=== PATIENT | male | born 1930 | race Caucasian/White ===

== ENCOUNTER 2017-03-06 14:34 | Inpatient (IN) | payer OTHER, MEDICARE ==
[2017-03-06] MEDS ORDERED: METOPROLOL TARTRATE PF/INJ 5 MG/5 ML SDV IV ONE (15:21)
[2017-03-06] MEDS ORDERED: NORMAL SALINE 1000 ML 1,000 ML IV ONE ×3 (15:21→19:31)
--- NOTE | 2017-03-06 15:26 | ER Document Report ---
ED General - General Chief Complaint: Nausea/Vomiting Stated Complaint: NAUSEA Time Seen by Provider: 03/06/17 15:11 Notes: 86-year-old male with history of atrial fibrillation, prior cardiac bypass and diabetes presents with multiple issues for the last 5 days. Recently out of rehab after stay with pneumonia. He has not been taking his medications for about 5 days and in the last 2 days has been complaining of chest pain, pain behind his umbilicus, palpitations and has had nausea and vomiting as well. He is not taking p.o. appetite. has to give some history as he has some dementia and appears confused. She states she feels like he is "giving up". He denies any specific symptoms and gives quite a different history. He denies any pain right now is asking for a Pepsi so that he does not . TRAVEL OUTSIDE OF THE [place] IN LAST 30 DAYS: No - Related Data Allergies/Adverse Reactions: Penicillins Allergy (Unknown, Verified 07/11/14 04:15) Past Medical History - Social History Smoking Status: Former Smoker Family History: Reviewed & Not Pertinent - Past Medical History Cardiac Medical History: Reports: Hx Hypertension Pulmonary Medical History: Reports: Hx COPD Endocrine Medical History: Reports: Hx Diabetes Mellitus Type 2 Past Surgical History: Reports: Hx Cardiac Surgery - CABG, stents - Immunizations Hx Diphtheria, Pertussis, Tetanus Vaccination: Yes Review of Systems - Review of Systems -: Yes ROS unobtainable due to patient's medical condition - Review of systems obtained through patient's family, otherwise negative Physical Exam - Vital signs Vitals: Resp 22 H 03/06/17 15:19 Interpretation: Tachycardic - Notes Notes: Physical Exam: GENERAL: VS as per nursing doc. chronically ill-appearing, well-nourished and in no acute distress. HEAD: Atraumatic, normocephalic. EYES: Pupils equal round and reactive to light, extraocular movements intact, sclera anicteric, no conjunctival injection or discharge. ENT: Nares patent, oropharynx clear without exudates. Dry mucous membranes. NECK: Supple without lymphadenopathy. LUNGS: Breath sounds diminished bilaterally, more so on the left. HEART: Normal S1S2. Irregularly irregular and tachycardic. Faint systolic murmur noted. ABDOMEN: Soft, non-tender EXTREMITIES: Normal range of motion. No calf tenderness. Negative Homans. 2-3 + pitting edema. NEUROLOGICAL: Cranial nerves grossly intact. Normal speech. Normal sensory and motor exams. No gross cerebellar abnormalities. PSYCH: Normal mood, normal affect. SKIN: Warm, dry, no cyanosis, no splinter hemorrhages. Cap refill < 2 sec. Course - Re-evaluation Re-evalutation: 03/06/17 16:29 Patient reevaluated and discussed with family the elevated lactic acid. Recommended Graf but the patient was adamant against this. He is disoriented somewhat but seems to understand the overall picture. We will treat him as sepsis at this point. Further fluid boluses have been ordered as well as antibiotics. 03/06/17 20:52 I spoke at length with his Wanda [phone] as well as I had the patient earlier. She confirms his living well request of patient being DNR, DO NOT INTUBATE and no CPR but they would like treatment otherwise. 03/06/17 21:16 D/W with Dr. Iglesias. 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 After the ultrasound I will discuss with the whether they would prefer comfort care or transfer. 03/06/17 22:33 I discussed further with Dr. Iglesias. And he will admit the patient for comfort care measures. Patient has become increasingly more confused starting to get somewhat hypotensive. I discussed with the at length and they would like comfort measures only and verified his DNR status. We will maintain her current infusions as they are. No other heroic measures will be performed, pressors or other zepeda. understands the grave prognosis for her . - Vital Signs Vital signs: Temp Pulse Resp BP Pulse Ox 21 H 93/74 L 92 03/06/17 22:06 03/06/17 22:06 03/06/17 22:06 - Laboratory Result Diagrams: 03/06/17 17:35 03/06/17 15:25 Laboratory results interpreted by me: 03/06/17 03/06/17 03/06/17 15:25 15:25 15:25 WBC Hgb RDW Plt Count Lymphocytes % Absolute Neutrophils Absolute Lymphocytes PT 23.8 H VBG pH VBG pCO2 VBG HCO3 Sodium 145.4 H Potassium 5.2 H Carbon Dioxide 13 L Anion Gap 26 H BUN 31 H Creatinine 1.99 H Est GFR ( Amer) 39 L Est GFR (Non-Af Amer) 32 L Glucose 134 H Lactic Acid 10.7 H Total Bilirubin 3.7 H Direct Bilirubin 1.9 H AST 1602 H ALT 1380 H Creatine Kinase 42 L Urine Protein Urine Glucose (UA) Urine Ketones Urine Blood Urine Urobilinogen Urine Ascorbic Acid 03/06/17 03/06/17 03/06/17 17:35 18:13 19:50 WBC 21.0 H Hgb 13.4 L RDW 16.2 H Plt Count 66 L Lymphocytes % 48.8 H Absolute Neutrophils 9.3 H Absolute Lymphocytes 10.3 H PT VBG pH VBG pCO2 VBG HCO3 Sodium Potassium Carbon Dioxide Anion Gap BUN Creatinine Est GFR ( Amer) Est GFR (Non-Af Amer) Glucose Lactic Acid 11.7 H Total Bilirubin Direct Bilirubin AST ALT Creatine Kinase Urine Protein >=500 H Urine Glucose (UA) 50 H Urine Ketones TRACE H Urine Blood LARGE H Urine Urobilinogen 4.0 H Urine Ascorbic Acid 40 H 03/06/17 03/06/17 19:50 19:50 WBC Hgb RDW Plt Count Lymphocytes % Absolute Neutrophils Absolute Lymphocytes PT VBG pH 7.24 L VBG pCO2 29.4 L VBG HCO3 12.2 L Sodium Potassium Carbon Dioxide Anion Gap BUN Creatinine Est GFR ( Amer) Est GFR (Non-Af Amer) Glucose Lactic Acid Total Bilirubin Direct Bilirubin AST ALT Creatine Kinase 40 L Urine Protein Urine Glucose (UA) Urine Ketones Urine Blood Urine Urobilinogen Urine Ascorbic Acid - Diagnostic Test Radiology reviewed: Image reviewed, Reports reviewed - Appears to me the patient has basilar atelectasis versus probable more likely infiltrate with his history of recent pneumonia. Radiology results interpreted by me: 03/06/17 20:43 CT scan showed some unusual calcifications at some area of infrarenal aneurysmal , small dissection cannot be excluded. Also a 6 mm calcification near the UPJ on the right without hydronephrosis. Patient is about to finish his third liter of fluids. Lactic acid had increased slightly. I do not have a prior creatinine to compare to. Repeat troponin is pending. Urine had significant hematuria but CPK was normal so less likely rhabdomyolysis. Heart rate has decreased to the 110-120 range with a systolic pressure of 160 currently. - EKG Interpretation by Me Rhythm: A.Fib - Tachycardic with rate 148. Fairly diffuse ST depression, some probably rate related. Procedures - Central Line Right Internal jugular Consent obtained: Yes Central line pre-insertion: Sterile PPE donned, Chloraprep applied, Sterile drapes applied Central line lumen type: Triple Anesthetic type: 1% Lidocaine mL's of anesthesia: 2 Ultrasound guided: Yes Line secured with sutures: Yes Central line post-insertion: Blood return from lumens, Biopatch applied, Sutured , Sterile dressing applied, Position confirmed w/ CXR Number of attempts: 1 Complications: No Notes: 03/06/17 23:59 Tolerated well. Placed with US and sterile Seldinger technique. Discharge - Discharge Clinical Impression: Sepsis, Non-STEMI (non-ST elevated myocardial infarction), Acute renal failure Condition: Critical Disposition: ADMITTED OBSERVATION Admitting Provider: [facility] Unit Admitted: Medical Floor
--- NOTE | 2017-03-06 16:03 | RADIOLOGY REPORT (SQ) ---
EXAM DESCRIPTION: CHEST SINGLE VIEW COMPLETED DATE/TIME: 03/06/2017 3:53 pm REASON FOR STUDY: Dyspnea COMPARISON: AP chest 07/11/2014 EXAM PARAMETERS: NUMBER OF VIEWS: One view. TECHNIQUE: Single frontal radiographic view of the chest acquired. RADIATION DOSE: NA LIMITATIONS: None. FINDINGS: LUNGS AND PLEURA: Bandlike scarring or atelectasis left lateral costophrenic sulcus. On today's study there is a trace left pleural effusion. No right pleural fluid. No fluffy alveolar infiltrates worrisome for edema or pneumonia. No pneumothorax. MEDIASTINUM AND HILAR STRUCTURES: No masses. Contour normal. HEART AND VASCULAR STRUCTURES: No cardiomegaly. Old CABG. BONES: No acute findings. HARDWARE: None in the chest. OTHER: No other significant finding. IMPRESSION: Trace left pleural fluid. Bandlike atelectasis left lung base. Old CABG TECHNICAL DOCUMENTATION: JOB ID: [id number]
[2017-03-06 16:08] LABS: PROTHROMBIN TIME 23.8 SEC (11.4-15.4)
[2017-03-06 16:12] LABS: ALBUMIN 4.1 g/dL (3.5-5.0); ALKALINE PHOSPHATASE 103 U/L (38-126); BILIRUBIN,DIRECT 1.9 mg/dL (0.0-0.4); BILIRUBIN,TOTAL 3.7 mg/dL (0.2-1.3); BLOOD UREA NITROGEN 31 mg/dL (7-20); CALCIUM 10.2 mg/dL (8.4-10.2); CARBON DIOXIDE 13 mmol/L (22-30); CHLORIDE 106 mmol/L (98-107); CREATINE KINASE 42 U/L (55-170); CREATININE RESULT 1.99 mg/dL (0.52-1.25); GLUCOSE 134 mg/dL (75-110); POTASSIUM 5.2 mmol/L (3.6-5.0); SODIUM 145.4 mmol/L (137-145); TOTAL PROTEIN 6.3 g/dL (6.3-8.2)
[2017-03-06] MEDS ORDERED: VANCOMYCIN HCL INJ 1000 MG VIAL IV ONE (16:22)
[2017-03-06] MEDS ORDERED: CEFEPIME INJ 1 GM VIAL IM ONE (16:22)
[2017-03-06 16:24] LABS: CREATINE KINASE MB 1.68 ng/mL (<4.55)
[2017-03-06 16:35] LABS: TROPONIN I 0.262 ng/mL
[2017-03-06 16:41] LABS: ALANINE AMINOTRANSFERASE 1380 U/L (21-72); ASPARTATE AMINO TRANSFERASE 1602 U/L (17-59)
[2017-03-06 16:42] LABS: ANION GAP 26 (5-19)
--- NOTE | 2017-03-06 17:21 | RADIOLOGY REPORT (SQ) ---
EXAM DESCRIPTION: CT ABD/PELVIS NO ORAL OR IV COMPLETED DATE/TIME: 03/06/2017 4:42 pm REASON FOR STUDY: Abd pain, vomiting COMPARISON: None. TECHNIQUE: CT scan of the abdomen and pelvis performed without intravenous or oral contrast. Images reviewed with lung, soft tissue, and bone windows. Reconstructed coronal and sagittal MPR images revi ewed. All images stored on PACS. All CT scanners at this facility use dose modulation, iterative reconstruction, and/or weight based d osing when appropriate to reduce radiation dose to as low as reasonably achievable (ALARA). [facility]: Dose Right [facility]: CareDose [facility]: Dose Right [facility]: Teradose 4D [facility]: Smart Keepy RADIATION DOSE: Up-to-date CT equipment and radiation dose reduction techniques were employed. CTDIv ol: 11.9 mGy. DLP: 614 mGy-cm.mGy. LIMITATIONS: None. FINDINGS: LOWER CHEST: Moderate left pleural effusion, small right pleural effusion. Subsegmental a telectasis in the left base. NON-CONTRASTED LIVER, SPLEEN, ADRENALS: Evaluation limited by lack of IV contrast. No identified sign ificant masses. PANCREAS: No masses. No peripancreatic inflammatory changes. GALLBLADDER: No identified stones by CT criteria. No inflammatory changes to suggest cholecystitis. RIGHT KIDNEY AND URETER: No suspicious masses. Cortical thinning. Prominent cortical cysts. A cou ple small intrarenal calculi are seen. There is a 6 mm calcification in the ureteral pelvic junction . No significant hydronephrosis. LEFT KIDNEY AND URETER: No suspicious masses. Assessment limited by lack of IV contrast. No signifi cant calcifications. No hydronephrosis or hydroureter. AORTA AND RETROPERITONEUM: There is mild aneurysm dilatation infrarenal abdominal aorta to a diameter of 32 mm. Unusual calcifications across the aorta on image 45 series 3 raises the possibility of a small dissection. BOWEL AND PERITONEAL CAVITY: Diverticular scattered in the colon but most prominent in the descending and sigmoid colon. No acute associated inflammatory changes are seen. Minimal ascites. APPENDIX: Normal. PELVIS, BLADDER, AND ABDOMINAL WALL:No abnormal masses. No free fluid. Bladder normal. BONES: No osseous lesions are seen. OTHER: There is mild subcutaneous edema. IMPRESSION: 1. Bilateral pleural effusions. 2. There is a 6 calcification at the right ureteral pelvic junction. There is no significant hydron ephrosis. 3. 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 Limited dissection cannot excluded. Consider contrast study if clinically indicated. 4. There is small amount of ascites. There is mild subcutaneous edema. COMMENT: Quality ID # [id number]: Final reports with documentation of one or more dose reduction techniques (e.g., Automated exposure control, adjustment of the mA and/or kV according to patient size, use of iterative reconstruction technique) TECHNICAL DOCUMENTATION: JOB ID: [id number] [employer]- All Rights Reserved
[2017-03-06 17:56] LABS: ABSOLUTE BASOPHILS # (AUTO) 0.1 10^3/uL (0.0-0.2); ABSOLUTE LYMPHOCYTES (AUTO) 10.3 10^3/uL (0.5-4.7); ABSOLUTE MONOCYTES (AUTO) 1.4 10^3/uL (0.1-1.4); ABSOLUTE NEUT (AUTO) 9.3 10^3/uL (1.7-8.2); BASOPHILS % (AUTO) 0.4 % (0-2); HEMATOCRIT 41.8 % (37.9-51.0); HEMOGLOBIN 13.4 g/dL (13.5-17.0); HGB HCT DIFFERENCE -1.6; LYMPHOCYTES % (AUTO) 48.8 % (13-45); MEAN CORPUSCULAR HEMOGLOBIN 29.2 pg (27.0-33.4); MEAN CORPUSCULAR VOLUME 91 fl (80-97); MONOCYTES % (AUTO) 6.4 % (3-13); RED CELL DISTRIBUTION WIDTH 16.2 % (11.5-14.0); SEGMENTED NEUTROPHILS % (AUTO) 44.4 % (42-78)
[2017-03-06 18:54] LABS: APPEARANCE,URINE CLOUDY; BILIRUBIN,URINE NEGATIVE (NEGATIVE); GLUCOSE, URINE 50 mg/dL (NEGATIVE); KETONES,URINE TRACE mg/dL (NEGATIVE); LEUKOCYTE ESTERASE,URINE NEGATIVE (NEGATIVE); NITRITE,URINE NEGATIVE (NEGATIVE); PROTEIN,URINE >=500 mg/dL (NEGATIVE); URINE SPECIFIC GRAVITY 1.024
--- NOTE | 2017-03-06 19:22 | RADIOLOGY REPORT (SQ) ---
EXAM DESCRIPTION: CHEST SINGLE VIEW COMPLETED DATE/TIME: 03/06/2017 7:10 pm REASON FOR STUDY: central line placement COMPARISON: Earlier the same day. EXAM PARAMETERS: NUMBER OF VIEWS: One view. TECHNIQUE: Single frontal radiographic view of the chest acquired. RADIATION DOSE: NA LIMITATIONS: None. FINDINGS: LUNGS AND PLEURA: A central line has been added via the right IJ. Catheter tip overlies t he right atrium. No pneumothorax. Lung snell are unchanged. MEDIASTINUM AND HILAR STRUCTURES: No masses. Contour normal. HEART AND VASCULAR STRUCTURES: Stable in appearance. BONES: No acute findings. HARDWARE: Sternotomy wires are in place. OTHER: No other significant finding. IMPRESSION: Central line has been placed as described. No pneumothorax. TECHNICAL DOCUMENTATION: JOB ID: [id number]
[2017-03-06 20:00] LABS: VENOUS BLOOD BASE EXCESS -13.8 mmol/L; VENOUS BLOOD HCO3 12.2 mmol/L (20-32); VENOUS BLOOD PCO2 29.4 mmHg (35-63); VENOUS BLOOD PH 7.24 (7.30-7.42)
--- NOTE | 2017-03-06 20:11 | EKG REPORT ---
SEVERITY:- ABNORMAL ECG - A-FLUTTER, A FIB LOW VOLTAGE IN FRONTAL LEADS REPOLARIZATION ABNORMALITY, PROB RATE RELATED BORDERLINE PROLONGED QT INTERVAL : Confirmed by: Trina Hannah 06-Mar-2017 20:10:35
--- NOTE | 2017-03-06 21:43 | RADIOLOGY REPORT (SQ) ---
EXAM DESCRIPTION: U/S ABDOMEN LTD W/DOPPLER COMPLETED DATE/TIME: 03/06/2017 9:32 pm REASON FOR STUDY: Sepsis, RUQ US, LFT elev COMPARISON: None. TECHNIQUE: Dynamic and static grayscale images acquired of the abdomen and recorded on PACS. Additio nal selected color Doppler and spectral images recorded. LIMITATIONS: None. FINDINGS: PANCREAS: The pancreas is obscured by overlying bowel gas. LIVER: No masses. Echotexture normal. LIVER VASCULATURE: There is to and fro flow noted within the portal vein. GALLBLADDER: No stones. Wall measures 3.0 mm which is upper normal. A small amount of pericholecyst ic fluid cannot be excluded. ULTRASOUND-DETECTED RICHARDS'S SIGN: Negative. INTRAHEPATIC DUCTS AND COMMON DUCT: CBD and intrahepatic ducts normal caliber. No filling defects. INFERIOR VENA CAVA: Normal flow. AORTA: Aorta demonstrates atherosclerotic change. There is mild aneurysmal dilatation in the mid aor ta. Largest diameter is 3.3 cm. RIGHT KIDNEY: Normal size. Normal echogenicity. No solid or suspicious masses. No hydronephrosis. No calcifications. There are multiple cyst. PERITONEAL AND RIGHT PLEURAL SPACE: There is a right pleural effusion. There is small volume ascites . OTHER: No other significant findings. IMPRESSION: 1. Small volume ascites and right pleural effusion. 2. Multiple right renal cysts. 3. The gallbladder wall is at the upper limits of normal in thickness. There appears to be a small amount of pericholecystic fluid. Negative sonographic Richards's sign. 4. To and fro flow is noted in the portal vein which can represent developing portal hypertension. TECHNICAL DOCUMENTATION: JOB ID: [id number] [employer]- All Rights Reserved
[2017-03-06] MEDS ORDERED: INSULIN LISPRO 100 UNIT/ML 3 ML VIAL SUBCUT PRN (23:54)
[2017-03-06] MEDS ORDERED: DEXTROSE 50%-WATER 25 GM/50 ML DISP.SYRIN IV PRN ×2 (23:54)
[2017-03-06] MEDS ORDERED: DEXTROSE 40% GEL 15 GM TUBE PO PRN ×2 (23:54)
[2017-03-06] MEDS ORDERED: GLUCAGON,HUMAN RECOMB 1 MG INJ IM PRN (23:54)
[2017-03-07] MEDS ORDERED: IPRATROPIUM/ALBUTEROL 0.5-2.5 MG/3 ML AMPUL NEB SCH
[2017-03-07 00:58] LABS: ALBUMIN 3.2 g/dL (3.5-5.0); ALKALINE PHOSPHATASE 87 U/L (38-126); BILIRUBIN,DIRECT 2.5 mg/dL (0.0-0.4); BLOOD UREA NITROGEN 32 mg/dL (7-20); CALCIUM 9.2 mg/dL (8.4-10.2); CREATININE RESULT 2.59 mg/dL (0.52-1.25); GLUCOSE 67 mg/dL (75-110); MAGNESIUM 2.3 mg/dL (1.6-2.3); PHOSPHORUS 8.3 mg/dL (2.5-4.5); TOTAL PROTEIN 5.3 g/dL (6.3-8.2)
[2017-03-07] MEDS: NORMAL SALINE 1000 ML 1,000 ML IV SCH ×3 (01:06→05:38)
[2017-03-07 01:16] LABS: CHLORIDE 111 mmol/L (98-107); POTASSIUM 5.6 mmol/L (3.6-5.0); SODIUM 147.6 mmol/L (137-145)
[2017-03-07 01:27] LABS: ALANINE AMINOTRANSFERASE 3249 U/L (21-72); ASPARTATE AMINO TRANSFERASE 4296 U/L (17-59)
[2017-03-07 01:28] LABS: ANION GAP 27 (5-19)
[2017-03-07 01:29] LABS: CARBON DIOXIDE 10 mmol/L (22-30)
[2017-03-07] MEDS ORDERED: DEXTROSE 50%-WATER 25 GM/50 ML DISP.SYRIN IV ONE (01:38)
[2017-03-07] MEDS ORDERED: NORMAL SALINE 1000 ML 2,000 ML IV ONE (01:38)
[2017-03-07 04:20] LABS: ARTERIAL BLOOD BASE EXCESS -18.4 mmol/L; ARTERIAL BLOOD O2 SATURATION 23.6 % (94-98)
[2017-03-07] MEDS ORDERED: DOPAMINE HCL/DEXTROSE 5%-WATER 800 MG/250 ML RTUINJ IV ONE (04:52)
[2017-03-07] MEDS ORDERED: DOPAMINE HCL 800 MG/D5W 250 ML IV PRN (04:54)
[2017-03-07] MEDS ORDERED: HEPARIN SOD (PORCINE) 5,000 UNIT/ML 1 ML SYRINGE SUBCUT SCH (06:00)
[2017-03-07] MEDS ORDERED: MORPHINE SULFATE 10 MG/ML INJ IV PRN ×2 (06:14→07:51)
[2017-03-07] MEDS ORDERED: LORAZEPAM INJ 2 MG/1 ML VIAL IV ONE (06:14)
[2017-03-07] MEDS ORDERED: LORAZEPAM INJ 2 MG/1 ML VIAL ONE (06:19)
--- NOTE | 2017-03-07 06:53 | PDOC H&P ---
History of Present Illness Admission Date/PCP: 03/06/17 23:49 Patient complains of: Nausea and vomiting History of Present Illness: REI CORREA is a 86 year old male with a past medical history of atrial fibrillation, coronary artery bypass graft, diabetes and recent pneumonia who was just discharged from rehab 5 days ago but over the last 3 days having delirium, chest pain, palpitations, abdominal pain and nausea. He is brought into the emergency room for evaluation is found to have delirium, severe sepsis secondary to left-sided pneumonia, multisystem organ failure and DIC. He is referred to the hospitalist for comfort measures only. Upon evaluation the patient is anxious, stating he expects to from this. Patient is unaware of his former antibiotic regiment, he is placed on vancomycin, cefepime and IV fluid resuscitation. Patient's is at bedside who understands he is grave prognosis and rationale for comfort measures. That said she agrees to a trial of IV antibiotics and IV fluids. Past Medical History Cardiac Medical History: Reports: Atrial Fibrillation, Congestive Heart Failure , Coronary Artery Disease, Hyperlipidema, Hypertension Pulmonary Medical History: Reports: Chronic Obstructive Pulmonary Disease (COPD) Endocrine Medical History: Reports: Diabetes Mellitus Type 2 Psychiatric Medical History: Reports: Depression Past Surgical History Past Surgical History: Reports: Coronary Artery Bypass Graft Social History Information Source: POA - Power of Internal Medicine Physician Assistant Lives with: Family Smoking Status: Former Smoker Cigarettes Packs Per Day: 2 Last Time Smoked: 1985 Frequency of Alcohol Use: None Drugs: None - Advance Directive Resuscitation Status: Comfort Measures Only Family History Family History: CAD, COPD Parental Family History Reviewed: Yes Children Family History Reviewed: Yes Sibling(s) Family History Reviewed.: Yes Medication/Allergy Home Medications: Aspirin [Aspirin 81 mg Chewable Tablet] 81 mg PO DAILY 09/17/11 Atorvastatin Calcium [Lipitor 40 Mg Tablet] 40 mg PO QHS 09/17/11 Clopidogrel Bisulfate [Plavix 75 Mg Tablet] 75 mg PO DAILY 09/17/11 Esomeprazole Mag Trihydrate [Nexium] 40 mg PO BID 09/17/11 Fluticasone/Salmeterol [Advair 100-50 Diskus] 1 puff IH PRN PRN 09/17/11 Metformin HCl [Glucophage] 1,000 mg PO DAILY 09/17/11 Metoprolol Tartrate [Lopressor 50 mg Tablet] 50 mg PO Q12H 09/17/11 Multivitamin [Vitamin A Day] 1 each PO DAILY 09/17/11 [place]-3 Fatty Acids/Fish Oil [Fish Oil 1,200 Mg Softgel] 1 each PO BID 09/17/11 Sotalol HCl [Sotalol] 80 mg PO BID 09/17/11 Trospium Chloride [Sanctura] 20 mg PO BID 09/17/11 Glucosamine Sulfate Dipot Chlr [Glucosamine] 1,000 mg PO DAILY 07/11/14 Losartan Potassium [Cozaar 50 mg Tablet] 50 mg PO DAILY 07/11/14 Ondansetron [Zofran Odt 4 mg Tablet] 4 mg PO Q4HP PRN #30 tab.rapdis 09/19/14 Allergies/Adverse Reactions: Penicillins Allergy (Unknown, Verified 07/11/14 04:15) Review of Systems ROS unobtainable: Due to mental status Physical Exam Vital Signs: Temp Pulse Resp BP Pulse Ox 97.4 F 143 H 24 H 94/62 L 72 L 03/07/17 03:40 03/07/17 05:35 03/07/17 03:40 03/07/17 05:35 03/07/17 03:40 Intake & Output 03/05/17 03/06/17 03/07/17 11:59 11:59 11:59 Intake Total 4115 Balance 4115 General appearance: PRESENT: disheveled, severe distress, other - Chronically ill-appearing with temporal wasting Head exam: PRESENT: atraumatic, normocephalic Eye exam: PRESENT: conjunctiva pink, EOMI, PERRLA. ABSENT: scleral icterus Ear exam: PRESENT: normal external ear exam Mouth exam: PRESENT: moist, tongue midline Neck exam: ABSENT: carotid bruit, JVD, lymphadenopathy, thyromegaly Respiratory exam: PRESENT: accessory muscle use, crackles, decreased breath sounds, prolonged expiratory phas, rales, rhonchi, tachypnea. ABSENT: chest wall tenderness Cardiovascular exam: PRESENT: RRR. ABSENT: diastolic murmur, rubs, systolic murmur Pulses: PRESENT: normal dorsalis pedis pul Vascular exam: PRESENT: normal capillary refill GI/Abdominal exam: PRESENT: normal bowel sounds, soft. ABSENT: distended, guarding, mass, organolmegaly, rebound, tenderness Rectal exam: PRESENT: deferred Extremities exam: PRESENT: full ROM. ABSENT: calf tenderness, clubbing, pedal edema Neurological exam: PRESENT: altered Psychiatric exam: PRESENT: anxious Skin exam: PRESENT: dry, intact, warm. ABSENT: cyanosis, rash Results Laboratory Results: 03/07/17 00:26 03/07/17 03/07/17 03/07/17 00:26 00:26 03:55 Carbonic Acid 1.11 HCO3/H2CO3 Ratio 9:1 ABG pH 7.08 L* ABG pCO2 36.9 ABG pO2 22.4 L* ABG HCO3 10.6 L ABG O2 Saturation 23.6 L ABG Base Excess -18.4 FiO2 50% Sodium 147.6 H Potassium 5.6 H Chloride 111 H Carbon Dioxide 10 L* Anion Gap 27 H BUN 32 H Creatinine 2.59 H Est GFR ( Amer) 29 L Est GFR (Non-Af Amer) 24 L Glucose 67 L Calcium 9.2 Phosphorus 8.3 H Magnesium 2.3 Total Bilirubin 4.0 H AST 4296 H ALT 3249 H Alkaline Phosphatase 87 Total Protein 5.3 L Albumin 3.2 L Impressions: Chest X-Ray 03/06/17 15:23 IMPRESSION: Trace left pleural fluid. Bandlike atelectasis left lung base. 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 Bilateral pleural effusions. 2. There is a 6 calcification at the right ureteral pelvic junction. There is no significant hydronephrosis. 3. 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 Limited dissection cannot excluded. Consider contrast study if clinically indicated. 4. There is small amount of ascites. There is mild subcutaneous edema. Abdomen Ultrasound 03/06/17 17:27 IMPRESSION: 1. Small volume ascites and right pleural effusion. 2. Multiple right renal cysts. 3. The gallbladder wall is at the upper limits of normal in thickness. There appears to be a small amount of pericholecystic fluid. Negative sonographic Richards's sign. 4. To and fro flow is noted in the portal vein which can represent developing portal hypertension. Assessment & Plan - Diagnosis (1) Severe sepsis Is this a current diagnosis for this admission?: Yes Plan: Secondary to pneumonia empiric antibiotics initiated IV fluid challenge initiated trial fixed dose dopamine. (2) DIC (disseminated intravascular coagulation) Is this a current diagnosis for this admission?: Yes Plan: Correction of the underlying infection with empiric antibiotics, given grave prognosis he will not likely survive thawing of FFP. (3) Shock liver Is this a current diagnosis for this admission?: Yes Plan: IV fluid resuscitation and trial of dopamine (4) Pneumonia Is this a current diagnosis for this admission?: Yes Plan: Pneumonia care set, empiric cefepime and vancomycin. Follow-up blood culture and CBC (5) Acute renal failure Is this a current diagnosis for this admission?: Yes Plan: Secondary to septic shock IV fluid resuscitation follow-up chemistry, avoid nephrotoxic meds and doses (6) Non-STEMI (non-ST elevated myocardial infarction) Is this a current diagnosis for this admission?: Yes Plan: Secondary to septic shock complicated by coronary artery disease supportive care - Time Time Spent: Greater than 70 Minutes - Inpatient Certification Medical Necessity: Need Close Monitoring Due to Risk of Patient Decompensation
[2017-03-07] MEDS ORDERED: MORPHINE SULFATE 10 MG/ML INJ IV ONE (07:51)
[2017-03-07 08:45] VITALS: BP 78/54
[2017-03-07] MEDS ORDERED: SOTALOL HCL 80 MG TABLET PO SCH (10:00)
[2017-03-07] MEDS ORDERED: CLOPIDOGREL BISULFATE 75 MG TABLET PO SCH (10:00)
[2017-03-07] MEDS ORDERED: CEFEPIME 2 GM/D5W RTU 2 GM/50 ML RTUPB IV SCH (10:00)
[2017-03-07] MEDS ORDERED: ASPIRIN 81 MG TABLET, CHEWABLE PO SCH (10:00)
[2017-03-07] MEDS: LORAZEPAM INJ 2 MG/1 ML VIAL IV PRN (11:29)
[2017-03-07] MEDS: ATROPINE SULFATE 1% OPH SOLN 5 ML BOTTLE SL SCH ×2 (12:18→20:31)
--- NOTE | 2017-03-07 17:08 | PDOC PROGRESS REPORT ---
Subjective Progress Note for:: 03/07/17 Subjective:: Unable to obtain review of systems secondary to obtundation Physical Exam Vital Signs: Temp Pulse Resp BP Pulse Ox 97.4 F 131 H 18 78/54 L 72 L 03/07/17 03:40 03/07/17 07:49 03/07/17 07:49 03/07/17 07:49 03/07/17 03:40 Intake & Output 03/06/17 03/07/17 03/08/17 06:59 06:59 06:59 Intake Total 4115 0 Output Total 0 Balance 4115 0 Weight 81.3 kg Exam: General: obtunded, mild tachypnea HEENT: AT/NC, oropharynx is moist, pink Neck: + JVD, trachea midline Chest: Diminished to mid lung, rales bilaterally CV: IRR, tachycardic Abdomen: Soft, nontender to palpation, nondistended, diminished bowel sounds Extremities: No cyanosis, clubbing or edema Neuro: obtunded Results Laboratory Results: 03/07/17 00:26 03/07/17 03/07/17 03/07/17 00:26 00:26 03:55 Carbonic Acid 1.11 HCO3/H2CO3 Ratio 9:1 ABG pH 7.08 L* ABG pCO2 36.9 ABG pO2 22.4 L* ABG HCO3 10.6 L ABG O2 Saturation 23.6 L ABG Base Excess -18.4 FiO2 50% Sodium 147.6 H Potassium 5.6 H Chloride 111 H Carbon Dioxide 10 L* Anion Gap 27 H BUN 32 H Creatinine 2.59 H Est GFR ( Amer) 29 L Est GFR (Non-Af Amer) 24 L Glucose 67 L Calcium 9.2 Phosphorus 8.3 H Magnesium 2.3 Total Bilirubin 4.0 H AST 4296 H ALT 3249 H Alkaline Phosphatase 87 Total Protein 5.3 L Albumin 3.2 L Impressions: Chest X-Ray 03/06/17 15:23 IMPRESSION: Trace left pleural fluid. Bandlike atelectasis left lung base. 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 Bilateral pleural effusions. 2. There is a 6 calcification at the right ureteral pelvic junction. There is no significant hydronephrosis. 3. 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 Limited dissection cannot excluded. Consider contrast study if clinically indicated. 4. There is small amount of ascites. There is mild subcutaneous edema. Abdomen Ultrasound 03/06/17 17:27 IMPRESSION: 1. Small volume ascites and right pleural effusion. 2. Multiple right renal cysts. 3. The gallbladder wall is at the upper limits of normal in thickness. There appears to be a small amount of pericholecystic fluid. Negative sonographic Richards's sign. 4. To and fro flow is noted in the portal vein which can represent developing portal hypertension. Assessment & Plan - Diagnosis (1) Comfort measures only status Is this a current diagnosis for this admission?: Yes (2) Septic shock Is this a current diagnosis for this admission?: Yes (3) Acute hypoxemic respiratory failure Is this a current diagnosis for this admission?: Yes (4) Acute renal failure Is this a current diagnosis for this admission?: Yes (5) DIC (disseminated intravascular coagulation) Is this a current diagnosis for this admission?: Yes (6) Non-STEMI (non-ST elevated myocardial infarction) Is this a current diagnosis for this admission?: Yes (7) Pneumonia Is this a current diagnosis for this admission?: Yes (8) Severe sepsis Is this a current diagnosis for this admission?: Yes (9) Shock liver Is this a current diagnosis for this admission?: Yes (10) Thrombocytopenia Is this a current diagnosis for this admission?: Yes - Time Time Spent with patient: 25-34 minutes Medications reviewed and adjusted accordingly: Yes Anticipated discharge: Other - Inpatient Certification Based on my medical assessment, after consideration of the patient's comorbidities, presenting symptoms, or acuity I expect that the services needed warrant INPATIENT care.: Yes I certify that my determination is in accordance with my understanding of Medicare's requirements for reasonable and necessary INPATIENT services [42 CFR 412.3e].: Yes Medical Necessity: Need for Pain Control 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 Patient is currently on morphine, Ativan, atropine patient secretions. Patient is a DNR.
[2017-03-08] MEDS: ATROPINE SULFATE 1% OPH SOLN 5 ML BOTTLE SL SCH ×3 (00:19→13:01)
[2017-03-08] MEDS: LORAZEPAM INJ 2 MG/1 ML VIAL IV PRN ×2 (09:34→14:24)
[2017-03-08] MEDS: MORPHINE SULFATE 10 MG/ML INJ IV PRN ×2 (13:02→14:23)
--- NOTE | 2017-03-08 14:41 | PDOC PROGRESS REPORT ---
Subjective Progress Note for:: 03/08/17 Subjective:: Patient is currently comfort measures. He is seen with his family and buddhism members at bedside. Unable to obtain review of systems secondary to obtundation. Physical Exam Vital Signs: Temp Pulse Resp BP Pulse Ox 97.4 F 131 H 18 78/54 L 72 L 03/07/17 03:40 03/07/17 07:49 03/07/17 07:49 03/07/17 07:49 03/07/17 03:40 Intake & Output 03/07/17 03/08/17 03/09/17 06:59 06:59 06:59 Intake Total 4115 50 Output Total 0 Balance 4115 50 Weight 81.3 kg 82.5 kg Exam: General: obtunded, tachypnea HEENT: AT/NC, oropharynx is dry, pink Neck: + JVD, trachea midline Chest: rales bilaterally CV: IRR, tachycardic Abdomen: Soft, nontender to palpation, nondistended, absent bowel sounds Extremities: +cyanosis, no clubbing; +edema Neuro: obtunded Skin: Mottling Results Laboratory Results: 03/07/17 00:26 Impressions: Chest X-Ray 03/06/17 15:23 IMPRESSION: Trace left pleural fluid. Bandlike atelectasis left lung base. 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 Bilateral pleural effusions. 2. There is a 6 calcification at the right ureteral pelvic junction. There is no significant hydronephrosis. 3. 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 Limited dissection cannot excluded. Consider contrast study if clinically indicated. 4. There is small amount of ascites. There is mild subcutaneous edema. Abdomen Ultrasound 03/06/17 17:27 IMPRESSION: 1. Small volume ascites and right pleural effusion. 2. Multiple right renal cysts. 3. The gallbladder wall is at the upper limits of normal in thickness. There appears to be a small amount of pericholecystic fluid. Negative sonographic Richards's sign. 4. To and fro flow is noted in the portal vein which can represent developing portal hypertension. Assessment & Plan - Diagnosis (1) Comfort measures only status Is this a current diagnosis for this admission?: Yes (2) Septic shock Is this a current diagnosis for this admission?: Yes (3) Acute hypoxemic respiratory failure Is this a current diagnosis for this admission?: Yes (4) Acute renal failure Is this a current diagnosis for this admission?: Yes (5) DIC (disseminated intravascular coagulation) Is this a current diagnosis for this admission?: Yes (6) Non-STEMI (non-ST elevated myocardial infarction) Is this a current diagnosis for this admission?: Yes (7) Pneumonia Is this a current diagnosis for this admission?: Yes (8) Severe sepsis Is this a current diagnosis for this admission?: Yes (9) Shock liver Is this a current diagnosis for this admission?: Yes (10) Thrombocytopenia Is this a current diagnosis for this admission?: Yes - Plan Summary Plan Summary: Patient is currently comfort measures only and is requiring significant amounts of IV morphine and Ativan. Patient is beginning to become cyanotic and mottled and anticipate soon. Family is aware and at bedside. They agree with comfort measures and patient remains a DNR.
--- NOTE | 2017-03-08 15:37 | Death Summary ---
Summary Date : 03/08/17 Time of :: 15:24 Resuscitation Status: Comfort Measures Only - Final Diagnosis (1) Septic shock Is this a current diagnosis for this admission?: Yes (2) Acute hypoxemic respiratory failure Is this a current diagnosis for this admission?: Yes (3) Acute renal failure Is this a current diagnosis for this admission?: Yes (4) DIC (disseminated intravascular coagulation) Is this a current diagnosis for this admission?: Yes (5) Non-STEMI (non-ST elevated myocardial infarction) Is this a current diagnosis for this admission?: Yes (6) Pneumonia Is this a current diagnosis for this admission?: Yes (7) Severe sepsis Is this a current diagnosis for this admission?: Yes (8) Shock liver Is this a current diagnosis for this admission?: Yes (9) Thrombocytopenia Is this a current diagnosis for this admission?: Yes (10) Comfort measures only status Is this a current diagnosis for this admission?: Yes Hospital Course:: REI CORREA is a 86 year old male with a past medical history of atrial fibrillation, coronary artery bypass graft, diabetes and recent pneumonia who was just discharged from rehab 5 days ago but over the last 3 days having delirium, chest pain, palpitations, abdominal pain and nausea. He is brought into the emergency room for evaluation is found to have delirium, severe sepsis secondary to left-sided pneumonia, multisystem organ failure and DIC. He is referred to the hospitalist for comfort measures only. Upon evaluation the patient is anxious, stating he expects to from this. Patient's is at bedside who understands he is grave prognosis and rationale for comfort measures. Patient was placed on comfort measures only and started on ativan, morphine, and atropine. Patient in the company of his family and faith members. No autopsy was requested. I personally pronounced patient.
== END 2017-03-08 16:45 | disposition left against medical advice (07) | DRG 871 ==
LOC: ER 14:34 → UNDOADMOB 22:54 → EH 22:54 → OBSVTOIN 23:49 → EH 23:49 → 3W 03-07 00:35
PROVIDERS: ADMIT Internal Medicine; ATTEND Internal Medicine
PROC: 02H633Z Insertion of Infusion Device into Right Atrium, Percutaneous Approach (ICD-10-PCS; principal; 2017-03-06)
DX: A41.9 Sepsis, unspecified organism (principal); I21.4 Non-ST elevation (NSTEMI) myocardial infarction; R65.21 Severe sepsis with septic shock; D65 Disseminated intravascular coagulation [defibrination syndrome]; J18.9 Pneumonia, unspecified organism; K72.00 Acute and subacute hepatic failure without coma; J96.01 Acute respiratory failure with hypoxia; N17.9 Acute kidney failure, unspecified; Z51.5 Encounter for palliative care; I25.10 Atherosclerotic heart disease of native coronary artery without angina pectoris; I48.91 Unspecified atrial fibrillation; E11.9 Type 2 diabetes mellitus without complications; I11.0 Hypertensive heart disease with heart failure; I50.9 Heart failure, unspecified; E78.5 Hyperlipidemia, unspecified; J44.9 Chronic obstructive pulmonary disease, unspecified; F32.9 Major depressive disorder, single episode, unspecified; Z87.891 Personal history of nicotine dependence; Z82.49 Family history of ischemic heart disease and other diseases of the circulatory system; Z88.0 Allergy status to penicillin; Z79.899 Other long term (current) drug therapy; Z95.1 Presence of aortocoronary bypass graft; Z79.84 Long term (current) use of oral hypoglycemic drugs; Z66 Do not resuscitate; F03.90 Unspecified dementia, unspecified severity, without behavioral disturbance, psychotic disturbance, mood disturbance, and anxiety
CPT/HCPCS: 36415; 36600; 71010; 74176; 76705; 80053; 81001; 82550; 82553; 82803; 82962; 83605; 83735; 84100; 84484; 85025; 85610; 87040; 87077; 87086; 87186; 93005; 93010; 93976; 94640; 96361; 96365; 96367; 96375; 99285; C1751; J0692; J1265; J2060; J2270; J3370; J3490; J7030; J7620